=== PATIENT | female | born 2000 | race Caucasian/White ===

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

== ENCOUNTER 2021-06-09 14:56 | Inpatient (IN) ==
[2021-06-09] MEDS ORDERED: Buffered Lidocaine 1% SYRIN 1 ml INTRADERM ONE (16:39)
[2021-06-09] MEDS ORDERED: Lactated Ringers 1000 ml BAG 1,000 ML IV ONE (16:39)
[2021-06-09 16:56] LABS: ABS Eosinophils 0.1 10^3/ul (0-0.6); ABS Lymphocytes 1.6 10^3/ul (1.0-4.8); ABS Monocytes 0.9 10^3/ul (0-0.8); ABS Neutrophils 9.7 10^3/ul (1.5-7.7); Eosinophil % 0.8 %; Hematocrit 39 % (35-47); Hemoglobin 13.1 g/dL (12.0-16.0); Lymphocyte % 12.8 %; Mean Corpuscular HGB Conc 34 g/dL (31-36); Mean Corpuscular Hemoglobin 33 pg (27-31); Mean Corpuscular Volume 96 fL (80-97); Mean Platelet Volume 9.7 fL (7.4-10.4); Nucleated Red Blood Cells % 0.1; Platelet Count 207 10^3/uL (150-450); Red Blood Count 4.04 10^6 /uL (3.70-4.87); Red Cell Distribution Width 13 % (10-15); White Blood Count 12.3 10^3/uL (3.5-10.8)
[2021-06-09 17:20] LABS: Urine Benzodiazepine Screen None Detected (None Detect); Urine Cannabinoids Screen None Detected (None Detect); Urine Opiates Screen None Detected (None Detect)
[2021-06-09] MEDS ORDERED: Penicillin G Potassium IV 5,000,000 UNITS in NS 0.9% 100 ml BAG 100 ML IVPB ONE (17:30)
[2021-06-09] MEDS ORDERED: Penicillin G Potassium IV 3,000,000 UNITS in NS 0.9% 100 ml BAG 100 ML IVPB SCH (21:00)
[2021-06-09] MEDS ORDERED: Oxytocin in LR 20 UNITS/1,000 ML BAG IVPB ONE (22:10)
[2021-06-09] MEDS ORDERED: Oxytocin in LR 20 UNITS/1,000 ML BAG IVPB SCH (23:25)
[2021-06-09] MEDS ORDERED: Witch Hazel PAD JAR TOPICAL PRN (23:36)
[2021-06-09] MEDS ORDERED: Dibucaine 1% OINT 28.35 GM TUBE PR PRN (23:36)
[2021-06-09] MEDS ORDERED: Lactated Ringers 1000 ml BAG 1,000 ML IV SCH (23:45)
[2021-06-10 06:43] LABS: ABS Lymphocytes 1.4 10^3/ul (1.0-4.8); ABS Monocytes 1.2 10^3/ul (0-0.8); ABS Neutrophils 14.6 10^3/ul (1.5-7.7); Eosinophil % 0.2 %; Hematocrit 36 % (35-47); Hemoglobin 12.1 g/dL (12.0-16.0); Lymphocyte % 8.1 %; Mean Corpuscular HGB Conc 34 g/dL (31-36); Mean Corpuscular Hemoglobin 33 pg (27-31); Mean Corpuscular Volume 97 fL (80-97); Mean Platelet Volume 9.8 fL (7.4-10.4); Platelet Count 192 10^3/uL (150-450); Red Cell Distribution Width 13 % (10-15); White Blood Count 17.2 10^3/uL (3.5-10.8)
[2021-06-11 09:00] VITALS: BP 114/57
== END 2021-06-11 20:55 | disposition home or self-care (01) | DRG 560 ==
LOC: MCHOBOUT 14:56 → MCHOB 16:32
PROVIDERS: ADMIT Midwife; ATTEND Midwife